=== PATIENT | female | born 1990 | race African-American/Black ===

== ENCOUNTER 2017-10-03 14:15 | Emergency (ER) | payer MEDICAID, SELFPAY ==
[~2017-10-03] VITALS: Ht 162.6 cm; Wt 74.8 kg
[~2017-10-03 14:15] MED LIST: CLOTRIM ANTIFUN15 GM TOP
[2017-10-03 15:21] LABS: BASOPHILS % (AUTO) 0.8 % (0.0-2.0); EOSINOPHILS % (AUTO) 0.9 % (0.0-3.0); HEMATOCRIT 37.1 % (37.0-47.0); HEMOGLOBIN 12.8 G/DL (12.0-16.0); LYMPHOCYTES % (AUTO) 20.8 % (20.0-45.0); MEAN CORPUSCULAR VOLUME 87 FL (80-99); MONOCYTES % (AUTO) 11.4 % (1.0-10.0); PLATELET COUNT 224 K/UL (150-450); RED BLOOD COUNT 4.28 M/UL (4.20-5.40); RED CELL DISTRIBUTION WIDTH 13.9 % (11.6-14.8)
[2017-10-03 15:27] LABS: APPEARANCE,URINE CLEAR; BILIRUBIN, URINE NEGATIVE (NEGATIVE); GLUCOSE, URINE (UA) NEGATIVE (NEGATIVE); KETONES,URINE NEGATIVE (NEGATIVE); LEUKOCYTE ESTERASE ,URINE 1+ (NEGATIVE); NITRITE,URINE NEGATIVE (NEGATIVE); PH,URINE 8 (4.5-8.0); PROTEIN,URINE NEGATIVE (NEGATIVE); UROBILINOGEN,URINE 4 MG/DL (0.0-1.0)
[2017-10-03 15:31] LABS: COLOR,URINE YELLOW
[2017-10-03 15:37] LABS: ANION GAP 9 mmol/L (5-15); BLOOD UREA NITROGEN 6 mg/dL (7-18); CALCIUM 9.1 MG/DL (8.5-10.1); CARBON DIOXIDE 25 MMOL/L (21-32); CHLORIDE 103 MMOL/L (98-107); CREATININE 0.6 MG/DL (0.55-1.30); POTASSIUM 3.3 MMOL/L (3.5-5.1); SODIUM 136 MMOL/L (136-145)
[2017-10-03 15:41] LABS: ALANINE AMINOTRANSFERASE 27 U/L (12-78); ALBUMIN 3.4 G/DL (3.4-5.0); ALBUMIN/GLOBULIN RATIO 0.9 (1.0-2.7); ALKALINE PHOSPHATASE 53 U/L (46-116); ASPARTATE AMINO TRANSFERASE 26 U/L (15-37); BILIRUBIN,TOTAL 0.1 MG/DL (0.2-1.0)
--- NOTE | 2017-10-03 17:35 | Diagnostic Imaging Report ---
Indication: Pain during . Beta hCG [id number] (no prior beta hcg available) Technique: Transabdominal and endovaginal pelvic ultrasound was performed. Comparison: None Findings: A cuellar live intrauterine is noted with approximate gestational age by ultrasound of 9 weeks 4 days. Mean gestational sac diameter of 47.2 mm. Maxwell-rump length measurement of 27.6 mm. heart tones and spontaneous movement noted on cine loops. Measured heart rate of approximately 175 bpm. The right ovary measures 2.9 x 1.4 x 1.8 cm/4 cc. The left ovary measures 4.4 x 2.4 x 3.5 cm/18.5 cc. Cystic structures in the left ovary measuring 1.9 and 0.7 cm in diameter are noted possibly representing corpus luteum cyst. Vascular flow to the bilateral ovaries is seen. There is trace free pelvic fluid. IMPRESSION: Live intrauterine with gestational age by ultrasound of approximately 9 weeks 4 days. heart rate of approximately 175 bpm. Cystic lesion in the left ovary possibly corpus luteum cyst. Short-term interval follow-up ultrasound recommended to assess stability/resolution. No evidence to suggest ovarian torsion at this time.
--- NOTE | 2017-10-03 17:54 | Emergency Room Report ---
History of Present Illness General Chief Complaint: Complications Source: Patient Present Illness HPI 27-year-old female presents to the emergency department complaining of 6/10 in severity left-sided adnexal pain x2 days. Patient also reports some mild intrauterine cramping. Patient reports she has been calculated to be 8 weeks at [facility] she denies having ultrasound she is with previous . Patient does not know her blood type is. Patient denies bleeding, fall, trauma, no discharge. Patient does report dysuria and urinary frequency. Patient denies nausea or vomiting. She states she's not currently taking prenatals. Allergies: Coded Allergies: No Known Allergies (Unverified , 05/21/12) Patient History Past Medical History: see triage record Past Surgical History: none Last Menstrual Period: jul 25 Now: Yes - 8 weeks : 2 Para: 1 Nursing Documentation-[facility] Past Medical History: No History, Except For Review of Systems All Other Systems: negative except mentioned in HPI Physical Exam Vital Signs Date Time Temp Pulse Resp B/P (MAP) Pulse Ox O2 Delivery O2 Flow Rate FiO2 10/03/17 14:28 98.4 83 18 118/76 98 Room Air Sp02 EP Interpretation: reviewed, normal General Appearance: no apparent distress, alert, GCS 15, non-toxic Head: normocephalic, atraumatic ENT: hearing grossly normal, normal voice Neck: full range of motion Respiratory: lungs clear, normal breath sounds, speaking full sentences Cardiovascular #1: regular rate, rhythm Gastrointestinal: normal bowel sounds, non tender, soft, other - left adnexal ttp Rectal: deferred Genitourinary: normal inspection, other - left adnexal ttp Musculoskeletal: back normal, gait/station normal, normal range of motion, non- tender Neurologic: alert, oriented x3, responsive, motor strength/tone normal, sensory intact, speech normal, grossly normal Psychiatric: judgement/insight normal Skin: normal color, no rash, warm/dry, well hydrated Lymphatic: no adenopathy Medical Decision Making PA Attestation Dr. Emanuel is my supervising Physician whom patient management has been discussed with. Diagnostic Impression: Primary Impression: Ovarian cyst during in first trimester Additional Impressions: Adnexal pain Abdominal pain during in first trimester ER Course Pt. presents to the ED c/o Left adnexal pain at 8 weeks . Ddx considered but are not limited to: Fibroid, ectopic , Fibroid, Spontaneous , ovarian cyst just to name a few. Vital signs: are WNL, pt. is afebrile H&PE are most consistent with: pain during early ORDERS: -CBC + BMP: Unremarkable -UA: unremarkable -Urine hcg- Positive -serum Hcg Quant: [id number] - Blood/RH type and screen- O - NEGATIVE --- informed pt. that she will eventually need rhogam to follow up with OBGYN or return promptly with any signs of vaginal bleeding. -Pelvic US complete- normal intrauterine estimated at 9 weeks gestation.-- also left ovarian cyst. ED INTERVENTIONS: None at this time. DISCHARGE: At this time pt. is stable for d/c to home. Will provide printed patient care instructions, and any necessary prescriptions. Care plan and follow up instructions have been discussed with the patient prior to discharge. Labs Test 10/03/17 15:00 White Blood Count 6.0 K/UL (4.8-10.8) Red Blood Count 4.28 M/UL (4.20-5.40) Hemoglobin 12.8 G/DL (12.0-16.0) Hematocrit 37.1 % (37.0-47.0) Mean Corpuscular Volume 87 FL (80-99) Mean Corpuscular Hemoglobin 29.9 PG (27.0-31.0) Mean Corpuscular Hemoglobin Concent 34.4 G/DL (32.0-36.0) Red Cell Distribution Width 13.9 % (11.6-14.8) Platelet Count 224 K/UL (150-450) Mean Platelet Volume 6.9 FL (6.5-10.1) Neutrophils (%) (Auto) 66.0 % (45.0-75.0) Lymphocytes (%) (Auto) 20.8 % (20.0-45.0) Monocytes (%) (Auto) 11.4 % (1.0-10.0) Eosinophils (%) (Auto) 0.9 % (0.0-3.0) Basophils (%) (Auto) 0.8 % (0.0-2.0) Urine Color Yellow Urine Appearance Clear Urine pH 8 (4.5-8.0) Urine Specific Brewster 1.010 (1.005-1.035) Urine Protein Negative (NEGATIVE) Urine Glucose (UA) Negative (NEGATIVE) Urine Ketones Negative (NEGATIVE) Urine Occult Blood Negative (NEGATIVE) Urine Nitrite Negative (NEGATIVE) Urine Bilirubin Negative (NEGATIVE) Urine Urobilinogen 4 MG/DL (0.0-1.0) Urine Leukocyte Esterase 1+ (NEGATIVE) Urine RBC 0-2 /HPF (0 - 2) Urine WBC 2-4 /HPF (0 - 2) Urine Squamous Epithelial Cells Few /LPF (NONE/OCC) Urine Bacteria Few /HPF (NONE) Sodium Level 136 MMOL/L (136-145) Potassium Level 3.3 MMOL/L (3.5-5.1) Chloride Level 103 MMOL/L (98-107) Carbon Dioxide Level 25 MMOL/L (21-32) Anion Gap 9 mmol/L (5-15) Blood Urea Nitrogen 6 mg/dL (7-18) Creatinine 0.6 MG/DL (0.55-1.30) Estimat Glomerular Filtration Rate > 60 mL/min (>60) Glucose Level 78 MG/DL (74-106) Calcium Level 9.1 MG/DL (8.5-10.1) Total Bilirubin 0.1 MG/DL (0.2-1.0) Aspartate Amino Transf (AST/SGOT) 26 U/L (15-37) Alanine Aminotransferase (ALT/SGPT) 27 U/L (12-78) Alkaline Phosphatase 53 U/L (46-116) Total Protein 7.2 G/DL (6.4-8.2) Albumin 3.4 G/DL (3.4-5.0) Globulin 3.8 g/dL Albumin/Globulin Ratio 0.9 (1.0-2.7) Human Chorionic Gonadotropin, Quant [id number] mIU/mL (1-6) CT/MRI/US Diagnostic Results CT/MRI/US Diagnostic Results : Imaging Test Ordered: Pelvic US Impression " normal intrauterine estimated at 9 weeks gestation.-- also left ovarian cyst." -Per official radiology report- Please see report for specific details. Last Vital Signs Date Time Temp Pulse Resp B/P (MAP) Pulse Ox O2 Delivery O2 Flow Rate FiO2 10/03/17 14:28 98.4 83 18 118/76 98 Room Air Disposition: HOME, SELF-CARE Condition: Stable Scripts Acetaminophen* (TYLENOL EXTRA STRENGTH*) 500 Mg Tablet 500 MG ORAL Q6H Y for Mild Pain/Temp > 100.5, #20 TAB 0 Refills Prov: Leanne West 10/03/17 Vit #91/Fe Fum/Fa/Dha ( + DHA COMBO PACK) 1 Each Combo..pkg 1 EACH PO DAILY, #1 PACK 3 Refills Prov: Leanne West 10/03/17 Referrals: NOT CHOSEN IPA/MD,REFERRING (PCP) Patient Instructions: Abdominal Pain During , First Trimester of , Kckf-am-Ongt Additional Instructions: Take medications as directed. YOU ARE O- NEGATIVE blood TYPE which will require administration of RhoGam. Follow up with a OBGYN within 3 days, even if your symptoms have resolved. Return sooner to ED if new symptoms occur, or current symptoms become worse. - Please note that this Emergency Department Report was dictated using [employer] technology software, occasionally this can lead to erroneous entry secondary to interpretation by the dictation equipment. Leanne West Oct 03, 2017 17:54
[2017-10-03] MEDS ORDERED: TYLENOL EXTRA500 MG ORAL (17:55)
[2017-10-03] MEDS ORDERED: PRENATAL + DHA1 EAC1 PO (17:55)
[2017-10-03 18:07] VITALS: BP 121/75
== END 2017-10-03 18:07 | disposition home or self-care (01) ==
LOC: EMR 15:00
DX: O26.891 Other specified pregnancy related conditions, first trimester (principal); R10.2 Pelvic and perineal pain; O34.81 Maternal care for other abnormalities of pelvic organs, first trimester; N83.202 Unspecified ovarian cyst, left side; Z3A.09 9 weeks gestation of pregnancy
CPT/HCPCS: 36415; 36430; 76830; 76856; 80053; 81003; 84702; 85025; 86900; 86901; 99284

== ENCOUNTER 2017-10-22 19:22 | Emergency (ER) | payer MEDICAID ==
[~2017-10-22] VITALS: Ht 162.6 cm; Wt 77.1 kg
[~2017-10-22 19:22] MED LIST changes: +PRENATAL + DHA1 EAC1 PO; +TYLENOL EXTRA500 MG ORAL
[2017-10-22] MEDS ORDERED: Sodium Chloride 500ML 500 ML IV ONE (20:05)
[2017-10-22] MEDS ORDERED: Acetaminophen 500mg (ES) tab ORAL ONE (20:15)
[2017-10-22 20:34] LABS: APPEARANCE,URINE CLEAR; BILIRUBIN, URINE NEGATIVE (NEGATIVE); COLOR,URINE PALE YELLOW; GLUCOSE, URINE (UA) NEGATIVE (NEGATIVE); KETONES,URINE NEGATIVE (NEGATIVE); LEUKOCYTE ESTERASE ,URINE NEGATIVE (NEGATIVE); NITRITE,URINE NEGATIVE (NEGATIVE); PH,URINE 6 (4.5-8.0); PROTEIN,URINE NEGATIVE (NEGATIVE); UROBILINOGEN,URINE NORMAL MG/DL (0.0-1.0)
[2017-10-22 20:42] LABS: EOSINOPHILS % (AUTO) 1.1 % (0.0-3.0); HEMATOCRIT 37.1 % (37.0-47.0); HEMOGLOBIN 12.8 G/DL (12.0-16.0); MEAN CORPUSCULAR VOLUME 86 FL (80-99); MONOCYTES % (AUTO) 7.4 % (1.0-10.0); NEUTROPHILS % (AUTO) 67.6 % (45.0-75.0); PLATELET COUNT 220 K/UL (150-450); RED CELL DISTRIBUTION WIDTH 13.4 % (11.6-14.8); WHITE BLOOD COUNT 9.9 K/UL (4.8-10.8)
[2017-10-22 21:04] LABS: ANION GAP 9 mmol/L (5-15); BLOOD UREA NITROGEN 8 mg/dL (7-18); CALCIUM 9.1 MG/DL (8.5-10.1); CARBON DIOXIDE 25 MMOL/L (21-32); CHLORIDE 103 MMOL/L (98-107); CREATININE 0.7 MG/DL (0.55-1.30); POTASSIUM 3.5 MMOL/L (3.5-5.1); SODIUM 136 MMOL/L (136-145)
--- NOTE | 2017-10-22 21:05 | Emergency Room Report ---
History of Present Illness General Chief Complaint: Headache Source: Patient Present Illness HPI 27-year-old female presents ED for evaluation. Patient states she has a headache for the last 4 days. Throbbing, 8/10, nonradiating. Denies nausea or vomiting. Denies neck stiffness. Denies fevers or chills. Denies photophobia or blurry vision. Patient states about 13 weeks . Noting lower abdominal pain. Denies any vaginal bleeding or discharge. Was seen here previously and told that she had ovarian cyst. Has not yet seen OB as outpatient. No other aggravating or relieving factors. Denies any other associated symptoms Allergies: Coded Allergies: No Known Allergies (Unverified , 05/21/12) Patient History Past Medical History: none Past Surgical History: none Pertinent Family History: none Social History: Denies: smoking, alcohol use, drug use Last Menstrual Period: 07/25/17 Now: Yes : 2 Para: 1 Immunizations: UTD Reviewed Nursing Documentation: PMH: Agreed, PSxH: Agreed Nursing Documentation-PMH Past Medical History: No Stated History Review of Systems All Other Systems: negative except mentioned in HPI Physical Exam Vital Signs Date Time Temp Pulse Resp B/P (MAP) Pulse Ox O2 Delivery O2 Flow Rate FiO2 10/22/17 19:39 98.9 81 14 132/75 98 Room Air 99.0 Sp02 EP Interpretation: reviewed, normal General Appearance: no apparent distress, alert, GCS 15, non-toxic Head: normocephalic, atraumatic Eyes: bilateral eye normal inspection, bilateral eye PERRL ENT: hearing grossly normal, normal pharynx, no angioedema, normal voice Neck: full range of motion, no meningismus, supple/symm/no masses Respiratory: chest non-tender, lungs clear, normal breath sounds, speaking full sentences Cardiovascular #1: regular rate, rhythm, no edema Cardiovascular #2: 2+ carotid (R), 2+ carotid (L), 2+ radial (R), 2+ radial (L) , 2+ dorsalis pedis (R), 2+ dorsalis pedis (L) Gastrointestinal: normal bowel sounds, non tender, soft, non-distended, no guarding, no rebound Rectal: deferred Genitourinary: normal inspection, no CVA tenderness Musculoskeletal: back normal, gait/station normal, normal range of motion, non- tender Neurologic: alert, oriented x3, responsive, motor strength/tone normal, sensory intact, speech normal Psychiatric: judgement/insight normal, memory normal, mood/affect normal, no suicidal/homicidal ideation Reflexes: 3+ bicep (R), 3+ bicep (L), 3+ tricep (R), 3+ tricep (L), 3+ knee (R) , 3+ knee (L) Skin: normal color, no rash, warm/dry, well hydrated Lymphatic: no adenopathy Medical Decision Making Diagnostic Impression: Primary Impression: Headache Qualified Codes: R51 - Headache Additional Impression: Threatened ER Course Hospital Course 27-year-old female presents ED complaining of headache, lower abdominal pain. Differential diagnoses include: gastrits, gastroenterits, ectopic , ovarian torsion/cyst, UTI Clinical course Patient placed on stretcher in ED. After initial history and physical I ordered labs, IV fluids and Zofran, tylenol and pelvic ultrasound. Labs-no leukocytosis, electrolytes okay, beta hCG 02035, UA unremarkable Pelvic ultrasound-IUP detected with heart rate, ruptured ovarian cyst Discussed findings with the patient. On reassessment pain is improved. Pain likely from ruptured ovarian cyst but threaten must be considered. Recommended close followup with PERSONNEL SUPERVISOR with serial ultrasound Diagnosis - headache, threatend Stable and discharged to home with Rx zofran, tylenol. Followup with PMD/OB/ [employer]. Return to ED if symptoms recur or worsen Labs Test 10/22/17 20:05 10/22/17 20:12 Urine Color Pale yellow Urine Appearance Clear Urine pH 6 (4.5-8.0) Urine Specific Hitchcock 1.010 (1.005-1.035) Urine Protein Negative (NEGATIVE) Urine Glucose (UA) Negative (NEGATIVE) Urine Ketones Negative (NEGATIVE) Urine Occult Blood Negative (NEGATIVE) Urine Nitrite Negative (NEGATIVE) Urine Bilirubin Negative (NEGATIVE) Urine Urobilinogen Normal MG/DL (0.0-1.0) Urine Leukocyte Esterase Negative (NEGATIVE) Urine HCG, Qualitative Positive White Blood Count 9.9 K/UL (4.8-10.8) Red Blood Count 4.30 M/UL (4.20-5.40) Hemoglobin 12.8 G/DL (12.0-16.0) Hematocrit 37.1 % (37.0-47.0) Mean Corpuscular Volume 86 FL (80-99) Mean Corpuscular Hemoglobin 29.7 PG (27.0-31.0) Mean Corpuscular Hemoglobin Concent 34.5 G/DL (32.0-36.0) Red Cell Distribution Width 13.4 % (11.6-14.8) Platelet Count 220 K/UL (150-450) Mean Platelet Volume 7.3 FL (6.5-10.1) Neutrophils (%) (Auto) 67.6 % (45.0-75.0) Lymphocytes (%) (Auto) 23.0 % (20.0-45.0) Monocytes (%) (Auto) 7.4 % (1.0-10.0) Eosinophils (%) (Auto) 1.1 % (0.0-3.0) Basophils (%) (Auto) 1.0 % (0.0-2.0) Sodium Level 136 MMOL/L (136-145) Potassium Level 3.5 MMOL/L (3.5-5.1) Chloride Level 103 MMOL/L (98-107) Carbon Dioxide Level 25 MMOL/L (21-32) Anion Gap 9 mmol/L (5-15) Blood Urea Nitrogen 8 mg/dL (7-18) Creatinine 0.7 MG/DL (0.55-1.30) Estimat Glomerular Filtration Rate > 60 mL/min (>60) Glucose Level 83 MG/DL (74-106) Calcium Level 9.1 MG/DL (8.5-10.1) Total Bilirubin 0.1 MG/DL (0.2-1.0) Aspartate Amino Transf (AST/SGOT) 15 U/L (15-37) Alanine Aminotransferase (ALT/SGPT) 30 U/L (12-78) Alkaline Phosphatase 50 U/L (46-116) Total Protein 7.1 G/DL (6.4-8.2) Albumin 3.4 G/DL (3.4-5.0) Globulin 3.7 g/dL Albumin/Globulin Ratio 0.9 (1.0-2.7) Lipase 171 U/L (73-393) Human Chorionic Gonadotropin, Quant 37765 mIU/mL (1-6) CT/MRI/US Diagnostic Results CT/MRI/US Diagnostic Results : Imaging Test Ordered: OB US Impression IUP noted. + FHR. free fluid likely ruptured ovarian cyst Last Vital Signs Date Time Temp Pulse Resp B/P (MAP) Pulse Ox O2 Delivery O2 Flow Rate FiO2 10/22/17 20:18 98.9 10/22/17 19:39 81 14 132/75 98 Room Air Status: improved Disposition: HOME, SELF-CARE Condition: Stable Scripts Ondansetron Odt* (ZOFRAN ODT*) 4 Mg Tab.rapdis 4 MG ORAL Q6H Y for Nausea & Vomiting, #30 TAB 0 Refills Prov: JEWELL YOUNG M.D. 10/22/17 Acetaminophen* (TYLENOL EXTRA STRENGTH*) 500 Mg Tablet 500 MG ORAL Q8H Y for Prn Headache/Temp > 101, #30 TAB 0 Refills Prov: JEWELL YOUNG M.D. 10/22/17 Referrals: NOT CHOSEN MARCIANO/,REFERRING (PCP) JEWELL YOUNG M.D. Oct 22, 2017 21:05
[2017-10-22 21:08] LABS: ALANINE AMINOTRANSFERASE 30 U/L (12-78); ALBUMIN 3.4 G/DL (3.4-5.0); ALBUMIN/GLOBULIN RATIO 0.9 (1.0-2.7); ALKALINE PHOSPHATASE 50 U/L (46-116); ASPARTATE AMINO TRANSFERASE 15 U/L (15-37); BILIRUBIN,TOTAL 0.1 MG/DL (0.2-1.0)
[2017-10-22] MEDS ORDERED: TYLENOL EXTRA500 MG ORAL (21:19)
[2017-10-22] MEDS ORDERED: ZOFRAN ODT4 MG ORAL (21:19)
[2017-10-22 21:27] VITALS: BP_SYST 124; BP_SYST 132; BP_DIAS 69; BP_DIAS 75
--- NOTE | 2017-10-23 17:17 | Diagnostic Imaging Report ---
Indication: Abdominal pain, patient Technique: Transabdominal and transvaginal images Comparison: none Findings: Uterus measures 10.6 cm in length by 7.4 cm AP. Within the endometrium, there is a gestational sac containing a pole with a crown-rump length of 57 mm, corresponding to an estimated gestational age of 12 weeks 2 days. No subchorionic hemorrhage demonstrated. There is positive heart activity, heart rate one 44 bpm. No myometrial abnormality. There is fluid in the left adnexal region. The left ovary measures 3.7 cm in length. The right ovary could not be visualized. Impression: Positive for 12 week 2 day single live intrauterine . No unusual features Free pelvic fluid,, presumably physiologic Note nonvisualization of the right ovary
== END 2017-10-22 21:28 | disposition home or self-care (01) ==
LOC: EMR 19:50
DX: O26.891 Other specified pregnancy related conditions, first trimester (principal); R51 Headache; O20.0 Threatened abortion; Z3A.13 13 weeks gestation of pregnancy
CPT/HCPCS: 36415; 76805; 80053; 81003; 81025; 83690; 84702; 85025; 96374; 96375; 99284; J2405; J7040